=== PATIENT | male | born 1980 | race African-American/Black ===

== ENCOUNTER 2018-10-26 21:11 | Emergency (ER) | payer BC ==
[~2018-10-26] VITALS: Ht 180.3 cm; Wt 77.3 kg
[2018-10-26 21:29] VITALS: Ht 180.3 cm; Wt 77.3 kg
[2018-10-26] MEDS ORDERED: ACETAMINOPHEN500 M1 PO (21:30)
[2018-10-26] MEDS ORDERED: PENICILLIN V P500 MG PO (21:30)
[2018-10-26] MEDS ORDERED: TYLENOL W/CODEI1 TAB PO (23:08)
[2018-10-26] MEDS ORDERED: CLEOCIN HCL300 MG PO (23:08)
[2018-10-26 23:24] VITALS: BP 122/81
== END 2018-10-26 23:24 | disposition home or self-care (01) ==
LOC: D.ER 21:11
DX: K08.89 Other specified disorders of teeth and supporting structures (principal); K05.20 Aggressive periodontitis, unspecified; K02.9 Dental caries, unspecified